=== PATIENT | female | born 1990 | race African-American/Black ===

== ENCOUNTER 2016-12-09 00:01 | Emergency (ER) | payer OTHER ==
[~2016-12-09 00:01] MED LIST: AMOXICILLIN 50500 M1; ATIVAN0.5 MG PO; BACTRIM DS TAB1 EACH PO; BENADRYL25 MG PO; BIRTH CONTROL; CIPRO250 M1; CIPROFLOXACIN500 M1 PO; COMPAZINE10 MG PO; DERMOPLAST SPRA56 ML; EPIPEN0.3 MG/0.3 IM; FLEXERIL PO; GLUCOPHAGE500 MG PO; HYDROCODONE-AP1 EAC6; HYDROXYZINE HCL10 M1; HYDROXYZINE HCL25 M1 PO; IBUPROFEN 600600 M1 PO; LOESTRIN 24 FE1 EACH PO; MEN-PHOR LOTIO222 M1; NORCO 5-325 TA1 EACH PO; PREDNISONE 20 M20 M1 PO; PRENATAL COMPL1 EACH PO; PRENATAL PO; RANITIDINE 150150 M1; TUCKS1 EAC1; ULTRAM 50MG TAB50 MG PO; VENTOLIN HFA 1818 GM INH; WELLBUTRIN XL300 MG PO; ZANTAC 150MG T150 M1 PO; ZPAK PO
== END 2016-12-09 03:45 | disposition left against medical advice (07) ==
LOC: ER 00:01
DX: Z53.21 Procedure and treatment not carried out due to patient leaving prior to being seen by health care provider (principal)

== ENCOUNTER 2017-07-28 10:40 | Emergency (ER) | payer OTHER ==
[~2017-07-28] VITALS: Ht 160 cm; Wt 113.4 kg
[~2017-07-28 10:40] MED LIST changes: +DIFLUCAN200 MG PO; +MACROBID 100 M100 M1 PO
[2017-07-28] MEDS ORDERED: ZYRTEC10 M2 PO (11:39)
[2017-07-28] MEDS ORDERED: ANTIVERT25 MG PO (11:39)
== END 2017-07-28 11:54 | disposition home or self-care (01) ==
LOC: ER 10:40
DX: R42 Dizziness and giddiness (principal); H69.90 Unspecified Eustachian tube disorder, unspecified ear; F17.210 Nicotine dependence, cigarettes, uncomplicated; Z88.6 Allergy status to analgesic agent; Z88.8 Allergy status to other drugs, medicaments and biological substances; W10.9XXA Fall (on) (from) unspecified stairs and steps, initial encounter; Y93.89 Activity, other specified; Y92.89 Other specified places as the place of occurrence of the external cause; Y99.8 Other external cause status

== ENCOUNTER 2018-11-13 22:39 | Emergency (ER) | payer OTHER ==
[~2018-11-13 22:39] MED LIST changes: +ANTIVERT25 MG PO; +ZYRTEC10 M2 PO
[2018-11-14 01:18] VITALS: BP 00/00
== END 2018-11-14 01:19 | disposition home or self-care (01) ==
LOC: ER 22:39
DX: Z53.21 Procedure and treatment not carried out due to patient leaving prior to being seen by health care provider (principal)

== ENCOUNTER 2019-05-10 01:03 | Emergency (ER) | payer BC, OTHER ==
[~2019-05-10] VITALS: Ht 162.6 cm; Wt 122.5 kg
[2019-05-10] MEDS ORDERED: IBUPROFEN 800800 M1 PO (04:29)
[2019-05-10] MEDS ORDERED: NORCO 5-325 TA1 EAC1 PO (04:29)
[2019-05-10] MEDS ORDERED: SENNA-DOCUSATE1 EAC1 PO (04:29)
[2019-05-10] MEDS ORDERED: NORFLEX100 MG PO (04:29)
[2019-05-10 04:38] VITALS: BP 130/80
--- NOTE | 2019-05-10 09:46 | EKG ---
[address] [address] ELECTROCARDIOGRAM REPORT Name: BRYNN MALLORY Room #: [facility]#: [id number] Admission: 05/10/19 Attend Phys: Discharge: 05/10/19 Date of : 89 Report #: [id number] THIS REPORT FOR: //name// [facility] ED Test Date: 2019-05-10 Test Time: 01:25:33 Pat Name: BRYNN MALLORY Department: Room: Gender: F Hospital Cna: COURTNEY : 1990 Requested By: Aldo Coreas Order Number: [id number] MD: Israel Wallace Measurements Intervals [place] Rate: 89 P: 67 VA: 175 QRS: 16 QRSD: 83 T: 14 QT: 377 QTc: 459 Interpretive Statements Sinus rhythm Normal tracing Compared to ECG 08/28/2016 18:58:13 No significant change was found Electronically Signed On 05-10-2019 9:45:46 CARD LACER JACQUARD by Israel Wallace [email or web address] <ELECTRONICALLY SIGNED> By: Israel Wallace MD, [facility] 05/10/19 0945 012 012 Israel Wallace MD, FACC /EPI
== END 2019-05-10 04:39 | disposition home or self-care (01) ==
LOC: ER 01:03
DX: M54.2 Cervicalgia (principal); M54.6 Pain in thoracic spine; M54.5 Low back pain; I10 Essential (primary) hypertension; E28.2 Polycystic ovarian syndrome; F17.210 Nicotine dependence, cigarettes, uncomplicated; Z91.018 Allergy to other foods; Z88.6 Allergy status to analgesic agent; Z88.8 Allergy status to other drugs, medicaments and biological substances